=== PATIENT | male | born 1975 | race African-American/Black ===

== ENCOUNTER 2017-05-05 10:32 | Emergency (ER) | payer SELFPAY ==
[2017-05-05 11:25] LABS: Anion Gap 12 mmol/L (10-20); BUN (Urea Nitrogen) 6 mg/dL (8.9-20.6); Calc. Creatinine Clearance 0 mL/min (70-130); Calcium 9.9 mg/dL (7.8-10.44); Carbon Dioxide 29 mmol/L (22-29); Chloride 102 mmol/L (98-107); Estimated GFR-MDRD 80; Glucose 82 mg/dL (70-105); Potassium 4.4 mmol/L (3.5-5.1); Sodium 139 mmol/L (136-145)
--- NOTE | 2017-05-05 14:06 | ULT ---
LEFT LOWER EXTREMITY VENOUS DOPPLER WITH SPECTRAL ANALYSIS AND COLOR FLOW EVALUATION: Date: 05/05/17 HISTORY: Left calf pain for 1 week. FINDINGS: Logan scale, color flow, Doppler evaluation, and spectral analysis of the left lower extremity venous structures is performed with 2D imaging. The left lower extremity common femoral, superficial femoral , popliteal, posterior tibial, most proximal greater saphenous, and profunda femoral veins are imaged . There is normal lumen compressibility, flow, and augmentation in the visualized deep venous structure s of the left lower extremity. IMPRESSION: No evidence of a deep venous thrombosis involving the visualized deep venous structures of left lower extremity. POS: DIPIKA
== END 2017-05-05 12:30 | disposition home or self-care (01) ==
LOC: SCSER 10:32
DX: S86.912A Strain of unspecified muscle(s) and tendon(s) at lower leg level, left leg, initial encounter (principal); F17.210 Nicotine dependence, cigarettes, uncomplicated; X58.XXXA Exposure to other specified factors, initial encounter
CPT/HCPCS: 80048

== ENCOUNTER 2019-10-24 22:29 | Emergency (ER) | payer SELFPAY ==
--- NOTE | 2019-10-24 23:15 | RAD ---
EXAM: Single view of the chest HISTORY: Right shoulder pain COMPARISON: 07/14/2013 FINDINGS: Single view of the chest shows a normal sized cardiomediastinal silhouette. There is no hazel dence of consolidation, mass, or pleural effusion. The bones are unremarkable IMPRESSION: No evidence of acute cardiopulmonary disease
[2019-10-24] MEDS ORDERED: Acetaminophen 500 MG TAB ONE (23:45)
== END 2019-10-24 23:52 ==
LOC: ERS 22:29
DX: M25.511 Pain in right shoulder (principal); F17.210 Nicotine dependence, cigarettes, uncomplicated
CPT/HCPCS: 71045

== ENCOUNTER 2020-03-13 09:37 | Emergency (ER) | payer SELFPAY ==
[2020-03-13] MEDS ORDERED: Morphine 4 MG/ML VIAL ONE (09:55)
[2020-03-13 10:31] LABS: #Eosinphils 0.1 thou/uL (0.0-0.7); #Lymphocytes 1.8 thou/uL (1.20-3.40); #Monocytes 0.5 thou/uL (0.11-0.59); #Neutrophils 2.7 thou/uL (1.40-6.50); %Basophils 0.6 % (0.0-1.0); %Eosinophils 2.4 % (0.0-10.0); %Lymphocytes 35.8 % (21.0-51.0); %Monocytes 9.3 % (0.0-10.0); %Neutrophils 51.9 % (42.0-75.0); Hemoglobin 15.3 g/dL (14.0-18.0); Mean Corpuscular HGB CONC 33.6 g/dL (32.0-36.0); Mean Corpuscular Hemoglobin 30.4 pg (27.0-31.0); Mean Corpuscular Volume 90.5 fL (78.0-98.0); Mean Platelet Volume 7.6 fL (7.4-10.4); Platelet Count 245 thou/uL (130-400); RBC Distribution Width 13.4 % (11.5-14.5); Red Blood Cell (RBC) Count 5.01 mill/uL (4.70-6.10); White Blood Cell (WBC) Count 5.1 thou/uL (4.8-10.8)
[2020-03-13 10:42] LABS: ALT (SGPT) 11 U/L (8-55); AST (SGOT) 23 U/L (5-34); Albumin 4.2 g/dL (3.5-5.0); Alkaline Phosphatase 64 U/L (40-110); Anion Gap 17 mmol/L (10-20); BUN (Urea Nitrogen) 7 mg/dL (8.9-20.6); Bilirubin, Total 1.2 mg/dL (0.2-1.2); Calc. Creatinine Clearance 0 mL/min (70-130); Calcium 9.5 mg/dL (7.8-10.44); Carbon Dioxide 21 mmol/L (22-29); Chloride 103 mmol/L (98-107); Globulin 3.3 g/dL (2.4-3.5); Glucose 85 mg/dL (70-105); Lipase 24 U/L (8-78); Potassium 4.4 mmol/L (3.5-5.1); Protein, Total 7.5 g/dL (6.0-8.3); Sodium 137 mmol/L (136-145)
[2020-03-13] MEDS ORDERED: Fentanyl 100 MCG/2 ML VIAL ONE (10:48)
--- NOTE | 2020-03-13 11:12 | CT ---
CT Aortic Dissection Protocol History: Chest pain Comparison: Chest radiograph September 2019 Findings: CT angiogram chest and abdomen performed after the intravenous administration of contrast. 3-D rendering provided. No aortic dissection or aneurysm. No penetrating atherosclerotic ulcer. No main pulmonary artery embo lism. No pericardial effusion. Mild dextroscoliosis midthoracic spine. Celiac trunk and superior mesenteric arteries are patent. No lung consolidation, pneumothorax or effusion. Trace right apical paraseptal emphysema. No dilated loops of bowel within the upper abdomen. No hydronephrosis. Adrenal glands are unremarkabl e. Main pancreatic duct size upper limits of normal as well as the majority of drainage appears to be wi thin the minor papilla. No free intraperitoneal gas or fluid. Small fat-containing umbilical hernia. Peripheral heterogeneous decreased enhancement peripheral aspect of the spleen may be sequelae of pha se of contrast. Impression: No aortic dissection or other acute intrathoracic abnormality.
[2020-03-13] MEDS ORDERED: Diazepam 10 MG/2 ML SYRINGE ONE (11:26)
[2020-03-13] MEDS ORDERED: Iopamidol-370 76% 500 ML 1 ML ONE (12:08)
[2020-03-13] MEDS ORDERED: Ketorolac Tromethamine 30 MG/ML VIAL ONE (12:17)
== END 2020-03-13 12:46 | disposition home or self-care (01) ==
LOC: ERS 09:37
DX: M54.6 Pain in thoracic spine (principal); F17.210 Nicotine dependence, cigarettes, uncomplicated
CPT/HCPCS: 36415; 71275; 74174; 80053; 83690; 84484; 85025; 86850; 86900; 86901; 93005; 94760; 96374; 96375; J1885; J2270; J3010; J3360; Q9967

== ENCOUNTER 2022-11-23 13:38 | Emergency (ER) | payer SELFPAY ==
[2022-11-23] MEDS ORDERED: Dexamethasone 4 mg/ml Vial ONE (14:29)
== END 2022-11-23 14:37 | disposition home or self-care (01) ==
LOC: ERS 13:38
DX: L24.9 Irritant contact dermatitis, unspecified cause (principal); L23.7 Allergic contact dermatitis due to plants, except food; F17.210 Nicotine dependence, cigarettes, uncomplicated
CPT/HCPCS: 96372; 99282; J1100

== ENCOUNTER 2023-03-28 04:58 | Emergency (ER) | payer SELFPAY | END 2023-03-28 06:17 | disposition home or self-care (01) | LOC: ERS 04:58 | DX: L01.00 Impetigo, unspecified (principal); F17.210 Nicotine dependence, cigarettes, uncomplicated | CPT/HCPCS: 99283 ==